=== PATIENT | male | born 1950 | race Caucasian/White ===

== ENCOUNTER 2017-07-03 13:30 | Day surgery (SDC) | payer MEDICARE ==
[~2017-07-03] VITALS: Ht 180.3 cm; Wt 111.4 kg
[~2017-07-03 13:30] MED LIST: Aggrenox Capsu1 EACH; Flovent Diskus50 MCG; Hair, Skin & N1 EACH; MELO7.5; METAMUCIL0.4 GM; Omeprazole20 M1; ZYRTEC10 M1
== END 2017-07-03 16:05 | disposition home or self-care (01) ==
LOC: ORSCSDS 13:30
PROVIDERS: Internal Medicine Gastroenterology
PROC: 0DBM8ZX Excision of Descending Colon, Via Natural or Artificial Opening Endoscopic, Diagnostic (ICD-10-PCS; principal; 2017-07-03 15:00)
DX: Z12.11 Encounter for screening for malignant neoplasm of colon (principal); K63.5 Polyp of colon; K57.30 Diverticulosis of large intestine without perforation or abscess without bleeding; G47.33 Obstructive sleep apnea (adult) (pediatric); E11.9 Type 2 diabetes mellitus without complications; Z79.899 Other long term (current) drug therapy; E66.9 Obesity, unspecified; Z68.34 Body mass index [BMI] 34.0-34.9, adult
CPT/HCPCS: 88305; J1980; J2250; J7120

== ENCOUNTER 2021-10-17 06:46 | Day surgery (SDC) | payer MEDICARE ==
[~2021-10-17] VITALS: Ht 180.3 cm; Wt 113.3 kg
[~2021-10-17 06:46] MED LIST changes: -Flovent Diskus50 MCG; +Flovent Diskus50 MCG PO; -Hair, Skin & N1 EACH; +Hair, Skin & N1 EACH PO; -MELO7.5; +MELO7.5 PO; -Omeprazole20 M1; +Omeprazole20 M1 PO
--- NOTE | 2021-10-17 11:23 | NUR ---
PT ARRIVED TO UNIT FROM PACU A&OX4. DENIES PAIN, N/V OR SOB. NUMB FROM HIPS DOWN. UNABLE TO WIGGLE TOES. PPP. LCA. HRR. VSS. ORIENTED TO CALL LIGHT. SPOUSE IN TO SEE PT. ASKED SPOUSE TO BRING IN PT'S HOME CPAP.
--- NOTE | 2021-10-17 13:30 | NUR ---
PT BEGINNING TO HAVE GROSS MOTOR MOVEMENT OF BLE. DENIES ANY PAIN. PROVIDED URINAL; PT REPORTED NEED TO VOID.
--- NOTE | 2021-10-17 17:28 | NUR ---
summary NO ACUTE CHANGES SINCE ARRIVING TO FLOOR FROM PACU. VSS. WORKED W/THERAPY. SITTING UP IN RECLINER AT THIS TIME. SPOUSE AT BEDSIDE. ABX INFUSING PER ORDERS AND MEDICATED PT PER ORDERS FOR 4/10 RLE PAIN. CALL LIGHT IN REACH.
[2021-10-18 04:47] LABS: BASOPHILS ABSOLUTE AUTO 0.04 K/mm3 (0.00-0.23); BASOPHILS PERCENT AUTO 0 % (0-2); EOSINOPHILS PERCENT AUTO 0 % (0-6); Hematocrit 35.9 % (37.0-53.0); Hemoglobin 12.7 g/dL (13.5-17.5); IMMATURE GRAN ABSOLUTE AUTO 0.05 K/mm3 (0.00-0.10); IMMATURE GRAN PERCENT AUTO 0 % (0-1); LYMPHOCYTES ABSOLUTE AUTO 1.75 K/mm3 (0.84-5.20); LYMPHOCYTES PERCENT AUTO 12 % (21-46); MONOCYTES ABSOLUTE AUTO 1.01 K/mm3 (0.16-1.47); MONOCYTES PERCENT AUTO 7 % (4-13); Mean Corpuscular HGB 30.8 pg (26.0-34.0); Mean Corpuscular HGB Conc 35.4 g/dL (31.5-36.5); Mean Corpuscular Volume 87 fL (80-100); Mean Platelet Volume 10.2 fL (9.1-12.4); NEUTROPHILS ABSOLUTE AUTO 11.81 K/mm3 (1.96-9.15); NEUTROPHILS PERCENT AUTO 81 % (41-73); Platelet Count 269 K/mm3 (150-400); RDW Coefficient Variation 12.7 % (11.7-14.2); RDW Standard Deviation 40.4 fL (35.1-46.3); Red Blood Cell Count 4.12 M/mm3 (4.30-5.90); White Blood Cell Count 14.66 K/mm3 (4.00-11.30)
[2021-10-18 05:23] LABS: Bun/Creatinine Ratio 17.9 (12.0-20.0); Calcium, Blood 9.1 mg/dL (8.5-10.1); Creatinine, Blood 0.84 mg/dL (0.60-1.20)
--- NOTE | 2021-10-18 05:56 | NUR ---
SUMMARY NO NEW ISSUES NOTED. PT PAIN HAS BEEN MANAGED WELL THROUGHOUT SHIFT. PT N/T TINGLING IMPROVED. PT HAS BEEN TAKING IN PO FLUIDS AND VOIDING WELL. PT HAS BEEN SLEEPING WITH HIS CPAP FOR MOST OF SHIFT.
[2021-10-18] MEDS ORDERED: ASPI81CH PO (07:07)
[2021-10-18] MEDS ORDERED: Percocet 5-3251 EACH PO (07:08)
--- NOTE | 2021-10-18 10:43 | NUR ---
DISCHARGE SUMMARY PATIENT ALERT AND ORIENTED. TOLERATING REGULAR DIET AND LIQUIDS. VOIDING WELL. AMBULATING IN HALLS WITH FWW AND GAIT BELT. CLEARED BY PT. PAIN CONTROLLED WITH PO PAIN MEDS. DISCHARGE EDUCATION GIVEN ON NEW MEDS, ACTIVITY, WOUND CARE, AND FOLLOW UP APPTS. PATIENT LEFT UNIT AT 1040 VIA WHEELCHAIR WITH SPOUSE FOR HOME.
== END 2021-10-18 10:40 | disposition home or self-care (01) ==
LOC: ORSCMMR 06:46 → ORD 08:15 → SURS 11:07 → ORSCMMR 10-18 10:40
PROVIDERS: Orthopaedic Surgery
PROC: 0SRC0JA Replacement of Right Knee Joint with Synthetic Substitute, Uncemented, Open Approach (ICD-10-PCS; principal; 2021-10-17 08:15)
DX: M17.0 Bilateral primary osteoarthritis of knee (principal); K21.9 Gastro-esophageal reflux disease without esophagitis; Z79.899 Other long term (current) drug therapy; G47.33 Obstructive sleep apnea (adult) (pediatric); E11.9 Type 2 diabetes mellitus without complications; E66.9 Obesity, unspecified; Z68.34 Body mass index [BMI] 34.0-34.9, adult
CPT/HCPCS: 36415; 73560-RT; 80048; 82947; 85025; 94660; 97110; 97116; 97162; A9270; C1776; J0171; J0690; J0735; J1100; J1885; J2250; J2704; J2795; J3010; J7120

== ENCOUNTER 2023-02-20 13:14 | Day surgery (SDC) | payer MEDICARE ==
[~2023-02-20] VITALS: Ht 180.3 cm; Wt 106.0 kg
[~2023-02-20 13:14] MED LIST changes: +ASPI81CH PO; +Percocet 5-3251 EACH PO
[2023-02-20] MEDS ORDERED: MELO7.5 (13:55)
[2023-02-20 15:48] VITALS: BP 144/87
== END 2023-02-20 15:50 | disposition home or self-care (01) ==
LOC: ORSCSDS 13:14
PROVIDERS: Internal Medicine Gastroenterology
PROC: 0DBM8ZX Excision of Descending Colon, Via Natural or Artificial Opening Endoscopic, Diagnostic (ICD-10-PCS; principal; 2023-02-20 14:30)
DX: Z12.11 Encounter for screening for malignant neoplasm of colon (principal); Z86.010 Personal history of colon polyps; K63.5 Polyp of colon; K57.30 Diverticulosis of large intestine without perforation or abscess without bleeding; K64.8 Other hemorrhoids; K64.4 Residual hemorrhoidal skin tags; G47.33 Obstructive sleep apnea (adult) (pediatric); E11.9 Type 2 diabetes mellitus without complications; K21.9 Gastro-esophageal reflux disease without esophagitis; E66.9 Obesity, unspecified; Z68.34 Body mass index [BMI] 34.0-34.9, adult; Z79.899 Other long term (current) drug therapy
CPT/HCPCS: 82947; 88305; J2704; J7120